=== PATIENT | female | born 1975 | race Caucasian/White ===

== ENCOUNTER 2018-11-15 11:00 | Day surgery (SDC) | payer OTHER ==
[2018-11-15] MEDS: LACTATED RINGER'S 1,000 ML IV (11:39)
[2018-11-15] MEDS ORDERED: HYDROmorphONE 1 MG/5 ML IV SYRINGE IV ×3 (13:00)
[2018-11-15] MEDS ORDERED: ROCURONIUM 50 MG INJ (13:00)
[2018-11-15] MEDS ORDERED: LIDOCAINE 1% (MDV) 20 ML INJ (13:00)
[2018-11-15] MEDS ORDERED: PROPOFOL 20 ML (13:00)
[2018-11-15] MEDS ORDERED: MIDAZOLAM 1 MG/ML 2 ML INJ (13:00)
[2018-11-15] MEDS ORDERED: ROPIVACAINE 0.5 % 30 ML VIAL (13:03)
[2018-11-15] MEDS ORDERED: CEFAZOLIN 1 GM INJ (13:16)
[2018-11-15] MEDS ORDERED: ONDANSETRON 4 MG INJ (13:17)
[2018-11-15] MEDS ORDERED: SUGAMMADEX SODIUM 200 MG/2 ML VIAL IV (14:01)
== END 2018-11-15 15:50 | disposition home or self-care (01) ==
LOC: SDS 11:00
DX: Z30.2 Encounter for sterilization (principal); N92.1 Excessive and frequent menstruation with irregular cycle
CPT/HCPCS: 58670